=== PATIENT | male | born 1995 | race Caucasian/White ===

== ENCOUNTER 2017-02-16 02:55 | Emergency (ER) | payer OTHER ==
[~2017-02-16] VITALS: Ht 177.8 cm; Wt 95.0 kg
[2017-02-16 02:58] VITALS: TEMP 36.7; Ht 177.8 cm; Wt 95.0 kg
[2017-02-16 04:01] VITALS: BP 96/76; PULSE 112; O2SAT 98
--- NOTE | 2017-02-16 04:45 | EMERGENCY ROOM VISIT NOTE ---
History First contact with patient: 03:05 Chief Complaint: FOOT PAIN Stated Complaint: BRUSED/POSSIBLY BROKEN RT FOOT History of Present Illness The patient is a 21 year old male who presents to the Emergency Room with complaints of injury to his right foot that occurred this evening. The patient states that he was at a bar, and kicked a stool. The patient was wearing sandals at the time and now has significant bruising on the inside of his foot. He states that he has an old fracture to the outside of his foot, but is not having pain in that area. He has not taken anything [id number] for his discomfort. He has been able to ambulate without difficulty. He rates his discomfort a 5/10. Review of Systems More than 10 systems were reviewed and otherwise negative with the exception of history of present illness. Past Medical/Surgical History No chronic medical disease Family History No pertinent family history Social History Smoking Status: Never Smoker Current/Historical Medications No Active Prescriptions or Reported Meds Allergies Coded Allergies: Clarithromycin (Verified Allergy, Intermediate, rash, 02/16/17) Physical Exam Vital Signs Date Time Temp Pulse Resp B/P Pulse Ox O2 Delivery O2 Flow Rate FiO2 02/16/17 04:01 112 18 96/76 98 Room Air 02/16/17 02:58 36.7 111 19 137/83 96 Room Air Pain Rating (0-10): 2.0 Physical Exam VITALS: Vitals are noted on the nurse's note and reviewed by myself. Vital signs stable. GENERAL: Well-developed, well-nourished, white male who appears moderately intoxicated on examination. He is answering questions appropriately and is cooperative. HEAD: Normocephalic atraumatic. HEART: Regular rate and rhythm without murmurs gallops or rubs. LUNGS: Clear to auscultation bilaterally without wheezes, rales or rhonchi. No retractions or accessory muscle use. MUSCULOSKELETAL: There is a area of ecchymosis and edema over the medial right mid foot. This area is tender on palpation and has overlying excoriations. There is no significant tenderness to the distal foot or toes. No plantar aspect tenderness. No tenderness of the right ankle or knee. The patient is with full sensation and range of motion. Medical Decision & Procedures ED Course Physical exam and history were performed. Nursing notes and EMR were reviewed. Patient appears to have injury to his right foot after kicking a barstool this evening. On examination he does have an excoriation foster over his area of maximal tenderness. He is reportedly up-to-date on his tetanus. X-rays were obtained and reviewed by myself and my attending and do not show obvious fracture or dislocation. I did offer the patient crutches and a brace, but he declined. He feels comfortable for discharge home and may use [id number] analgesics. He was given information to follow with orthopedics if any ongoing or persisting symptoms. He was otherwise invited back to the ER anytime and voiced understanding of this plan. The chart was completed utilizing [employer] Voice Recognition Software. Grammatical errors, random word insertions, pronoun errors, and incomplete sentences are an occasional consequence of this system due to software limitations, ambient noise, and hardware issues. Any formal questions or concerns about the content, text, or information contained within the body of this dictation should be directly addressed to the provider for clarification. . Medical Decision Differential diagnosis includes, but is not limited to: Sprain, strain, fracture , dislocation, subluxation, contusion, and others Impression Primary Impression: Right foot injury Departure Information Dispostion Home / Self-Care Condition GOOD Prescriptions No Active Prescriptions or Reported Meds Referrals Sebastian Bowles MD Forms HOME CARE DOCUMENTATION FORM, IMPORTANT VISIT INFORMATION Patient Instructions My [facility] Additional Instructions You were seen and evaluated today on an emergency basis only. This is not a substitute for, or an effort to provide, complete comprehensive medical care. It is not possible to recognize and treat all injuries or illnesses in a single emergency department visit. For this reason it is recommended that you followup with [facility] orthopedics , Dr. Bowles's office, with any ongoing or persistent symptoms. For baseline pain relief you may alternate ibuprofen and acetaminophen every 4 hours for pain control. Take 600 mg ibuprofen (Advil) and then 4 hours later take 1000 mg acetaminophen (Tylenol). Do not take more than 3000 mg acetaminophen in a single day. You are welcome to return to the emergency department anytime with new, worsening, or concerning symptoms.
--- NOTE | 2017-02-16 06:59 | DIAGNOSTIC IMAGING REPORT ---
RIGHT FOOT MIN 3 VIEWS ROUTINE CLINICAL HISTORY: Right foot pain following injury. COMPARISON: None FINDINGS: The tarsometatarsal joints are intact. No acute fracture is identified. There is an accessory ossicle along the lateral aspect of the cuboid. IMPRESSION: No acute fracture or dislocation of the right foot. Electronically signed by: Madi Alvarado M.D. 02/16/2017 6:57 AM Dictated Date/Time: 02/16/2017 6:55 AM
== END 2017-02-16 04:03 | disposition home or self-care (01) ==
LOC: C.EDB 02:57 → C.EDA 04:03
DX: S99.921A Unspecified injury of right foot, initial encounter (principal); W22.8XXA Striking against or struck by other objects, initial encounter; Y92.89 Other specified places as the place of occurrence of the external cause